=== PATIENT | female | born 1965 | race Caucasian/White ===

== ENCOUNTER 2021-05-09 18:57 | Inpatient (IN) ==
[2021-05-09] MEDS ORDERED: ONDANSETRON INJ 2 MG/ML 2 ML VIAL IV STA ×2 (19:46→20:31)
[2021-05-09] MEDS ORDERED: KETOROLAC TROMETHAMINE 15 MG/ML VIAL IV STA (19:46)
[2021-05-09] MEDS ORDERED: SODIUM CHLORIDE 0.9% 1000ML 1,000 ML IV ONE (19:46)
[2021-05-09 20:12] LABS: Basophils # (auto) 0.05 K/uL (0-0.2); Basophils % (auto) 0.4 %; Eosinophils # (auto) 0.57 K/uL (0-0.5); Eosinophils % (auto) 4.8 %; Hematocrit (blood only) 42.4 % (37-47); Hemoglobin 14.5 g/dL (12.0-16.0); Immature Granulocytes # (auto) 0.03 K/uL (0.00-0.02); Immature Granulocytes % (auto) 0.3 %; Lymphocytes # (auto) 3.07 K/uL (1.2-3.4); Lymphocytes % (auto) 25.8 %; Mean Corpuscular Hemoglobin 32.7 pg (25-34); Mean Corpuscular Hgb Conc 34.2 g/dL (32-36); Mean Corpuscular Volume 95.7 fL (80-100); Mean Platelet Volume 10.6 fL (7.4-10.4); Monocytes # (auto) 1.02 K/uL (0.11-0.59); Monocytes % (auto) 8.6 %; Neutrophils # (auto) 7.14 K/uL (1.4-6.5); Neutrophils % (auto) 60.1 %; Platelet Count 264 K/uL (130-400); RDW Coefficient of Variation 13.3 % (11.5-14.5); RDW Standard Deviation 46.2 fL (36.4-46.3); Red Blood Count 4.43 M/uL (4.2-5.4); White Blood Count 11.88 K/uL (4.8-10.8)
[2021-05-09 20:15] LABS: Appearance Urine Clear (Clear); Bacteria Urine Automated Negative (Negative); Bilirubin Urine Negative (Negative); Blood Urine Negative (Negative); Color Urine Yellow; Epithelial Cell Urine Auto 20-30 /lpf (0-5); Glucose Urine UA Negative (Negative); Ketones Urine Negative (Negative); Leukocyte Esterase Urine 2+ (Negative); Nitrite Urine Negative (Negative); Protein Urine Negative (Negative); RBC Urine Automated 0-4 /hpf (0-4); Specific Gravity Urine 1.012 (1.000-1.030); Urobilinogen Urine Negative (Negative); pH Urine 6.5 (4.5-7.5)
[2021-05-09] MEDS ORDERED: MoRPHine SULFATE 4 MG/ML 1 ML CARP\\VIAL IV STA (20:27)
[2021-05-09 20:29] LABS: Alanine Aminotransferase 25 U/L (12-78); Albumin Level 4.2 gm/dl (3.4-5.0); Aspartate Aminotransferase 24 U/L (15-37); BUN Creatinine Ratio 9.8 (10-20); Bilirubin Direct < 0.1 mg/dl (0-0.2); Blood Urea Nitrogen 10 mg/dl (7-18); Calcium 9.8 mg/dl (8.5-10.1); Carbon Dioxide 31 mmol/L (21-32); Chloride 105 mmol/L (98-107); Creatinine Clr Calc Pharmacy 50.6 ml/min; Est GFR (African American) 77.3 ml/min; Est GFR (Non-African American) 66.7 ml/min; Glucose 89 mg/dl (70-99); Lipase 174 U/L (73-393); Sodium 139 mmol/L (136-145)
[2021-05-09 20:32] LABS: Alkaline Phosphatase 98 U/L (45-117); Bilirubin,Total 0.5 mg/dl (0.2-1); Total Protein 7.7 gm/dl (6.4-8.2)
--- NOTE | 2021-05-09 21:13 | Emergency Department Note ---
History of Present Illness General Chief Complaint: Abdominal Pain Stated Complaint: SEVERE STOMACH PAIN Time Seen by Provider: 05/09/21 19:43 History of Present Illness Provider Complaint: abdominal pain Onset (ago): minute(s) (90) Pain Consistency: constant Location: epigastric Radiation: RUQ and back Migration to: no migration Severity: severe Maximum Pain Intensity: 10 Current Pain Intensity: 9 Quality: + stabbing and + sharp Relieved By: + eating Exacerbated By: + nothing Context: + possible food poisoning (Occurred while eating kielbasa); no foreign travel, no sick contacts, no recent antibiotic use, no recent surgery/procedure or no recent injury Associated Symptoms: + nausea and + vomiting (1 episode.); no diarrhea, no fever, no chills, no constipation, no dysuria, no hematemesis, no hematochezia, no melena, no hematuria, no anorexia, no syncope, no headache, no neck pain, no chest pain, no weakness and no numbness Home Medications Medication Instructions Recorded Confirmed Type escitalopram oxalate 20 mg tablet 20 mg PO QAM 05/09/21 05/09/21 History ([employer] Allergies Allergy/AdvReac Type Severity Reaction Status Date / Time No Known Allergies Allergy Mild Unverified 05/09/21 21:00 Past Med/Surg History Medical History (Updated 05/09/21 @ 23:56 by Vaibhav García) Depressive disorder Kidney stone No pertinent family history Surgical History (Updated 05/09/21 @ 21:11 by Vaibhav García) History of ureter stent No pertinent past surgical history Social History Smoking Status: Current every day smoker Tobacco Type: Cigarettes Preferred Language: Thai Feels Safe at Home: Yes Review of Systems A total of 10 systems reviewed and were otherwise negative Physical Exam Vital Signs: Vital Signs - 24 hr 05/09/21 19:20 05/09/21 20:07 05/09/21 21:19 Temperature 36.4 C L Temperature Source Oral Pulse Rate 76 Pulse Rate [Right] 86 Pulse Rhythm Regular Pulse Rhythm [Righ t] Regular Pulse Strength Normal Pulse Strength [Ri ght] Normal Respiratory Rate 20 20 Respiratory Effort / Characteristics Non-Labored Sponta neous Non-Labored Sponta neous Respiratory Depth Normal Normal Respiratory Patter n Regular Blood Pressure 143/81 H Blood Pressure [Ri ght Arm] 157/76 H Blood Pressure Ariana n 101 Blood Pressure Ariana n [Right Arm] 103 Blood Pressure Pos ition Sitting Blood Pressure Pos ition [Right Arm] Sitting Pulse Oximetry 100 99 99 Oxygen Delivery Me thod Room Air Room Air Room Air Sepsis Recent Feve r Within 48 Hours No Sepsis New/Unexpla ined Change in Men miguelina Status No Sepsis Action Take n by Nursing No Action Required 05/09/21 22:18 05/09/21 23:48 Temperature Temperature Source Pulse Rate Pulse Rate [Right] 70 69 Pulse Rhythm Pulse Rhythm [Righ t] Regular Regular Pulse Strength Pulse Strength [Ri ght] Normal Normal Respiratory Rate 16 16 Respiratory Effort / Characteristics Non-Labored Sponta neous Non-Labored Sponta neous Respiratory Depth Normal Normal Respiratory Patter n Blood Pressure Blood Pressure [Ri ght Arm] 122/69 128/70 Blood Pressure Ariana n Blood Pressure Ariana n [Right Arm] 86 89 Blood Pressure Pos ition Blood Pressure Pos ition [Right Arm] Lying Pulse Oximetry 96 97 Oxygen Delivery Me thod Room Air Room Air Sepsis Recent Feve r Within 48 Hours Sepsis New/Unexpla ined Change in Men miguelina Status Sepsis Action Take n by Nursing Physical Exam: Physical Exam GENERAL: She is oriented to person, place, and time. She appears well-developed and well-nourished. She does not appear distressed. HENT: Exam performed. -Head: Normocephalic and atraumatic. -Right Ear: External ear normal. No mastoid tenderness. -Left Ear: External ear normal. No mastoid tenderness. -Mouth/Throat: The oropharynx is clear and moist. No trismus in the jaw. No dental abscesses or uvula swelling. No oropharyngeal exudate or tonsillar abscesses. EYES: Conjunctivae and EOM are normal. Pupils are equal, round, and reactive to light. Right eye exhibits no discharge. Left eye exhibits no discharge. No scleral icterus. NECK: Normal range of motion. Neck supple. No JVD present. No spinous process tenderness present. No carotid bruit present. No rigidity. No tracheal deviation and normal range of motion present. No Brudzinski's sign and no Kernig's sign noted. CV: Normal rate, regular rhythm, normal heart sounds and intact distal pulses. T here is no peripheral edema. Palpable radial pulses bue. PULM/CHEST: Effort normal and breath sounds normal. No respiratory distress. No stridor. She has no wheezes. She has no rales. -Chest Wall: She exhibits no tenderness. ABD: The abdomen is soft. Bowel sounds are normal. She has no distension. No mass is present. There is tenderness to palpation of the right upper quadrant and epigastric area. There is no rebound, no guarding, no Ware's sign and no tenderness at McBurney's point. Rovsig negative MUSC/SKEL: Normal range of motion. There is no peripheral edema, tenderness or deformity. LYMPH: No cervical adenopathy. NEURO: She is alert and oriented to person, place, and time. She has normal strength. No cranial nerve deficit or sensory deficit. Coordination and gait normal. GCS eye subscore is 4. GCS verbal subscore is 5. GCS motor subscore is 6. Cerebellar tests wnl. SKIN: Skin is warm and dry. She is not diaphoretic. PSYCH: She has a normal mood and affect. Behavior is normal. Judgment and thought content normal. Course Course 194: The patient was evaluated in room C6. A complete history and physical exam was performed Cardiac monitoring: An order was placed for continuous cardiac monitoring. The monitor shows a rate of 80 with sinus rhythm 2200: Vital signs stable. Labs within normal limits. Imaging within normal limits. Patient still reporting a lot of epigastric abdominal pain. She states pain medications not help. Patient will be taken for CT scan of the abdomen. Repeat analgesia ordered for the patient. 2353: Vital signs stable. CT does show dilated fluid-filled small bowel in the lower abdomen pelvis with air-fluid levels which could indicate an early or partial obstruction with possible transition point in the upper pelvis. No hydronephrosis or ureteral calculus. There is also mention of progressing L3-L4 disc base narrowing and irregularity which could represent advanced degenerative changes or discitis/osteomyelitis however the patient has no back pain. [facility] Discussed case with Dr. Juares who agrees to evaluate the patient. Administered Medications Discontinued Medications Al Hydrox/Mg Hydrox/Simethicone (Gi Cocktail Ed Use) 1 dose PO ONE ONE Stop: 05/09/21 21:25 Last Admin: 05/09/21 21:36 Dose: 1 dose Documented by: [id number] Hydromorphone HCl (Hydromorphone Inj 1 Mg/Ml Syringe) 1 mg IV NOW STA Stop: 05/09/21 21:54 Last Admin: 05/09/21 22:17 Dose: 1 mg Documented by: [id number] Sodium Chloride (Nss 1000ml) 1,000 mls @ 999 mls/hr IV .Q1H1M ONE Stop: 05/09/21 20:46 Last Infusion: 05/09/21 21:03 Dose: 0 mls/hr Documented by: [id number] Admin: 05/09/21 19:57 Dose: 999 mls/hr Documented by: [id number] Ioversol (Optiray 320 100ml) 93 ml IV ONCE ONE Stop: 05/09/21 22:31 Last Admin: 05/09/21 22:31 Dose: 93 ml Documented by: [id number] Ketorolac Tromethamine (Ketorolac Tromethamine 15 Mg/Ml Vial) 15 mg IV NOW STA Stop: 05/09/21 19:47 Last Admin: 05/09/21 19:57 Dose: 15 mg Documented by: [id number] Morphine Sulfate (Morphine Sulfate 4 Mg/Ml 1 Ml Carp\Vial) 4 mg IV NOW STA Stop: 05/09/21 20:28 Last Admin: 05/09/21 20:35 Dose: 4 mg Documented by: [id number] Ondansetron HCl (Ondansetron Inj 2 Mg/Ml 2 Ml Vial) 4 mg IV NOW STA Stop: 05/09/21 19:47 Last Admin: 05/09/21 19:57 Dose: 4 mg Documented by: [id number] Ondansetron HCl (Ondansetron Inj 2 Mg/Ml 2 Ml Vial) 4 mg IV NOW STA Stop: 05/09/21 20:32 Last Admin: 05/09/21 20:35 Dose: 4 mg Documented by: [id number] Medical Decision Making Laboratory Data Result diagrams: 05/09/21 20:00 05/09/21 20:00 Lab Results 05/09/21 05/09/21 05/09/21 Range/Units 20:00 20:00 20:00 WBC 11.88 H (4.8-10.8) K/uL RBC 4.43 (4.2-5.4) M/uL Hgb 14.5 (12.0-16.0) g/dL Hct 42.4 (37-47) % MCV 95.7 (80-100) fL MCH 32.7 (25-34) pg MCHC 34.2 (32-36) g/dL RDW Std Deviation 46.2 (36.4-46.3) fL RDW Coeff of Hugo 13.3 (11.5-14.5) % Plt Count 264 (130-400) K/uL MPV 10.6 H (7.4-10.4) fL Immature Gran % (Auto) 0.3 % Neut % (Auto) 60.1 % Lymph % (Auto) 25.8 % [place] % (Auto) 8.6 % Eos % (Auto) 4.8 % Baso % (Auto) 0.4 % Neut # (Auto) 7.14 H (1.4-6.5) K/uL Lymph # (Auto) 3.07 (1.2-3.4) K/uL [place] # (Auto) 1.02 H (0.11-0.59) K/uL Eos # (Auto) 0.57 H (0-0.5) K/uL Baso # (Auto) 0.05 (0-0.2) K/uL Immature Gran # (Auto) 0.03 H (0.00-0.02) K/uL Sodium 139 (136-145) mmol/L Potassium 4.0 (3.5-5.1) mmol/L Chloride 105 (98-107) mmol/L Carbon Dioxide 31 (21-32) mmol/L Anion Gap 4.0 (3-11) BUN 10 (7-18) mg/dl Creatinine 0.97 (0.6-1.2) mg/dl Est Cr Clr Drug Dosing 50.6 ml/min Est GFR ( Amer) 77.3 ml/min Est GFR (Non-Af Amer) 66.7 ml/min BUN/Creatinine Ratio 9.8 L (10-20) Glucose 89 (70-99) mg/dl Calcium 9.8 (8.5-10.1) mg/dl Total Bilirubin 0.5 (0.2-1) mg/dl Direct Bilirubin < 0.1 (0-0.2) mg/dl AST 24 (15-37) U/L ALT 25 (12-78) U/L Alkaline Phosphatase 98 (45-117) U/L Total Protein 7.7 (6.4-8.2) gm/dl Albumin 4.2 (3.4-5.0) gm/dl Lipase 174 (73-393) U/L Urine Color Yellow Urine Appearance Clear (Clear) Urine pH 6.5 (4.5-7.5) Ur Specific [place] 1.012 (1.000-1.030) Urine Protein Negative (Negative) Urine Glucose (UA) Negative (Negative) Urine Ketones Negative (Negative) Urine Blood Negative (Negative) Urine Nitrite Negative (Negative) Urine Bilirubin Negative (Negative) Urine Urobilinogen Negative (Negative) Ur Leukocyte Esterase 2+ H (Negative) Urine WBC (Auto) 10-30 H (0-5) /hpf Urine RBC (Auto) 0-4 (0-4) /hpf U Hyaline Cast (Auto) 1-5 (0-5) /lpf U Epithel Cells (Auto) 20-30 H (0-5) /lpf Urine Bacteria (Auto) Negative (Negative) POC Ur Test (NEG) 05/09/21 Range/Units 20:00 WBC (4.8-10.8) K/uL RBC (4.2-5.4) M/uL Hgb (12.0-16.0) g/dL Hct (37-47) % MCV (80-100) fL MCH (25-34) pg MCHC (32-36) g/dL RDW Std Deviation (36.4-46.3) fL RDW Coeff of Hugo (11.5-14.5) % Plt Count (130-400) K/uL MPV (7.4-10.4) fL Immature Gran % (Auto) % Neut % (Auto) % Lymph % (Auto) % [place] % (Auto) % Eos % (Auto) % Baso % (Auto) % Neut # (Auto) (1.4-6.5) K/uL Lymph # (Auto) (1.2-3.4) K/uL [place] # (Auto) (0.11-0.59) K/uL Eos # (Auto) (0-0.5) K/uL Baso # (Auto) (0-0.2) K/uL Immature Gran # (Auto) (0.00-0.02) K/uL Sodium (136-145) mmol/L Potassium (3.5-5.1) mmol/L Chloride (98-107) mmol/L Carbon Dioxide (21-32) mmol/L Anion Gap (3-11) BUN (7-18) mg/dl Creatinine (0.6-1.2) mg/dl Est Cr Clr Drug Dosing ml/min Est GFR ( Amer) ml/min Est GFR (Non-Af Amer) ml/min BUN/Creatinine Ratio (10-20) Glucose (70-99) mg/dl Calcium (8.5-10.1) mg/dl Total Bilirubin (0.2-1) mg/dl Direct Bilirubin (0-0.2) mg/dl AST (15-37) U/L ALT (12-78) U/L Alkaline Phosphatase (45-117) U/L Total Protein (6.4-8.2) gm/dl Albumin (3.4-5.0) gm/dl Lipase (73-393) U/L Urine Color Urine Appearance (Clear) Urine pH (4.5-7.5) Ur Specific [place] (1.000-1.030) Urine Protein (Negative) Urine Glucose (UA) (Negative) Urine Ketones (Negative) Urine Blood (Negative) Urine Nitrite (Negative) Urine Bilirubin (Negative) Urine Urobilinogen (Negative) Ur Leukocyte Esterase (Negative) Urine WBC (Auto) (0-5) /hpf Urine RBC (Auto) (0-4) /hpf U Hyaline Cast (Auto) (0-5) /lpf U Epithel Cells (Auto) (0-5) /lpf Urine Bacteria (Auto) (Negative) POC Ur Test NEG (NEG) Imaging Data My Impression: Chest x-ray negative. Airway clear. No pneumothorax. No consolidation. No cardiomegaly or cephalization.. No free air under the diaphragm. No fractures of the skeletal structures. No air-fluid levels. Nonspecific bowel gas pattern Radiologist's Impression: PreliminaryFindingsOnly See Final Report For Complete Findings US GALLBLADDER: The gallbladder maybe mildlycontracted with gallbladder wall measuring up to 3 mmthickness. No gallstones or biliarysludge. No sonographic Ware's sign elicited. No biliarydilatation. The common bile duct measures 4 mmin diameter. Unremarkable liver and pancreas. Several nonobstructing inferior right renal calculi measuring 2 mm. Right renal cyst. No hydronephrosis. Radiologist: Jesus Manuel Matthieu, M.D. Study ready at 21:14 and initial results transmitted at 21:18 PreliminaryFindingsOnly See Final Report For Complete Findings CT ABDOMEN & PELVIS With Contrast: Comparison 11/16/2015. Moderate chronic left hydronephrosiswithout associated hydroureter, as before. Presumablychronic UPJ obstruction. Multiple bilateral renal cysts. Several bilateral nonobstructing renal calculi measuring 1-2 mm. No ureteral calculus. No right hydronephrosis. Solid organs otherwise unremarkable. No calcified gallstones. No biliarydilatation. Dilated, fluid-filled small bowel in the lower abdomen and pelviswith air-fluid levelswhich could indicate earlyor partial obstruction with possible transition point in the upper pelvis. Correlate clinically. No evidence for acute appendicitis. Unremarkable uterus. Small amount of free fluid in the pelvis. No abscess or free air. Numerous pelvic phleboliths, as before. Progressing L3-4 disc space narrowing, endplate irregularityand endplate s clerosiswhich maybe advanced degenerative changes though underlying discitis/osteomyelitis cannot be completely excluded in the appropriate clinical setting. Radiologist: Jesus Manuel Sommers M.D. Study ready at 22:41 and initial results transmitted at 23:42 ECG Data Indication: abdominal pain Rate (beats per minute): 62 Rhythm: normal sinus Findings: no ST depression, no ST elevation or no prolonged QT MDM Narrative 1943: The patient was evaluated in room C6. A complete history and physical exam was performed Cardiac monitoring: An order was placed for continuous cardiac monitoring. The monitor shows a rate of 80 with sinus rhythm 2200: Vital signs stable. Labs within normal limits. Imaging within normal limits. Patient still reporting a lot of epigastric abdominal pain. She states pain medications not help. Patient will be taken for CT scan of the abdomen. Repeat analgesia ordered for the patient. 2353: Vital signs stable. CT does show dilated fluid-filled small bowel in the lower abdomen pelvis with air-fluid levels which could indicate an early or partial obstruction with possible transition point in the upper pelvis. No hydronephrosis or ureteral calculus. There is also mention of progressing L3-L4 disc base narrowing and irregularity which could represent advanced degenerative changes or discitis/osteomyelitis however the patient has no back pain. [facility]. Discussed case with Dr. Juares who agrees to evaluate the patient. Impression & Plan Small bowel obstruction Discharge Plan Visit Data Chief Complaint: Abdominal Pain Stated Complaint: SEVERE STOMACH PAIN ED Provider: Vaibhav García Discharge Problem: Small bowel obstruction Patient Disposition: Admitted As Inpatient Forms Stand [facility] Prescriptions Prescriptions: No Action escitalopram oxalate [Lexapro] 20 mg tablet 20 mg PO QAM RF: 0 Referrals Referrals: Scott Rothman MD [Primary Care Provider] -
[2021-05-09] MEDS ORDERED: GI COCKTAIL ED USE PO ONE (21:24)
[2021-05-09] MEDS ORDERED: HYDROmorphone INJ 1 MG/ML SYRINGE IV STA (21:53)
[2021-05-09] MEDS ORDERED: OPTIRAY 320 100ml IV ONE (22:30)
[2021-05-09] MEDS ORDERED: diphenhydrAMINE 50 MG/ML VIAL IV STA (23:53)
[2021-05-09] MEDS ORDERED: HYDROmorphone INJ 0.5 MG/0.5 ML SYR IV STA (23:53)
[2021-05-09] MEDS ORDERED: METOCLOPRAMIDE HCL INJ 5 MG/ML 2 ML VIAL IV ONE (23:53)
[2021-05-10] MEDS ORDERED: HYDROmorphone INJ 0.5 MG/0.5 ML SYR IV PRN (03:23)
--- NOTE | 2021-05-10 04:25 | History and Physical Report ---
DATE OF ADMISSION: 05/10/2021. CHIEF COMPLAINT: Abdominal pain. HISTORY OF PRESENT ILLNESS: This is a 55-year-old female with past medical history significant for GERD, history of nephrolithiasis and hydronephrosis, history of tobacco use disorder, history of depression, history of controlled substance agreement signed, presents with abdominal pain. The patient states the pain started after eating her dinner, severe in nature, all over the belly, going to the back, and had nausea and vomited a few times, that has prompted her to come to the ER. She had normal bowel movement in the morning yesterday. Denies any cough, no fever, no chills, no chest pain, no shortness of breath, no headache, no blurred visions, no earache, no runny nose, no sore throat, no difficulty swallowing. No swelling in the legs, no rash. Currently resting comfortably and hemodynamically stable. ALLERGIES: No known drug allergies. PAST MEDICAL HISTORY: As mentioned above. PAST SURGICAL HISTORY: Left breast lesion excision, colonoscopy, fragment of kidney stone by shockwave. MEDICATIONS: The patient is on Lexapro 20 mg p.o. daily. FAMILY HISTORY: Significant for mother has Alzheimer disease, breast cancer; father has hypertension, triple bypass, diabetes; maternal aunt has breast cancer. SOCIAL HISTORY: . Smokes 1-2 packs a day for 40 years. Alcohol, 1 beer per day. No drug use. REVIEW OF SYSTEMS: As per HPI. Rest of the review of systems is negative. PHYSICAL EXAMINATION: GENERAL: The patient is of moderate build, not in acute distress. VITAL SIGNS: Temperature 36.4, pulse 69, respiratory rate 16, blood pressure 128/70, oxygen 97% on room air. HEENT: Pupils equal, round and reactive to light. Oral mucosa moist. NECK: No JVD, no neck masses. CARDIOVASCULAR: S1 and S2 heard. Regular rate and rhythm. No murmur, no gallop. RESPIRATORY SYSTEM: Normal AP diameter. No accessory muscle use. No wheezing, no crackles. ABDOMEN: Soft. Bowel sounds sluggish. No distention, no guarding, no rigidity. Mild discomfort. CENTRAL NERVOUS SYSTEM: Cranial nerves II-XII grossly intact, nonfocal. EXTREMITIES: No edema, no erythema. LABORATORY DATA: WBC 11.8, hemoglobin 14.5, hematocrit 42.4, platelets 264. Sodium 139, potassium 4, chloride 105, bicarbonate 31, BUN 10, creatinine 0.9, serum glucose 89, calcium 9.8, total bilirubin 0.5, direct bilirubin less than 0.1, AST 24, ALT 25, alkaline phosphatase 98, lipase 174. Urinalysis, +2 leukocyte esterase, negative for bacteria, negative for test. SARS-CoV-2 PCR pending. IMAGING DATA: Preliminary report on CT of abdomen and pelvis, partial small bowel obstruction, . Moderate chronic left hydronephrosis with associated hydroureter, chronic UPJ obstruction, multiple bilateral renal cysts. Gallbladder ultrasound, preliminary report unremarkable. Chest x-ray, preliminary report unremarkable. EKG: Normal sinus rhythm at rate of 62, no acute ST changes seen. ASSESSMENT AND PLAN: This is a 55-year-old female who presents with abdominal pain. 1. Abdominal pain: Partial small bowel obstruction on the preliminary report on CAT scan. The patient denies any abdominal surgeries. We will keep her n.p.o., IV fluids, D5 normal saline at 125 mL per hour, IV Dilaudid 0.5 mg q. 3 hours p.r.n. IV antiemetics, and consult surgery for further recommendations. 2. Possible urinary tract infection: Rocephin. Follow the cultures. 3. Left hydroureter: Seems to be chronic, but does not follow with urology. Will consult urology for further recommendations. 4. Depression: Continue Lexapro. 5. Deep venous thrombosis prophylaxis: Lovenox. DISPOSITION: Closely monitor in the medical floor. PT/OT prior to discharge. Social service to help with discharge planning. Job ID: [id number] [facility]
--- NOTE | 2021-05-10 04:27 | Surgery Consultation ---
Date of Consultation May 10, 2021 Assessment & Plan (1) Small bowel obstruction: Patient has been admitted to the hospital service and we recommend proceeding as follows: Provide analgesics Provide antiemetics Provide IV fluid for hydration Continue bowel rest with n.p.o. status. As patient's abdomen is benign at the time of my exam and she has not had any nausea vomiting for several hours I feel we can hold on NG tube placement at this time. I have explained to the patient that if she has return of her nausea vomiting an NG tube placement for gastric decompression may be required Cause of patient's partial small bowel obstruction is unclear. It is unlikely that she has had adhesions that she has not had any abdominal surgeries. There is potential that maybe patient had a nonspecific enteritis causing this problem that has resolved. I explained to the patient that once she begins passing flatus or having bowel movements we will begin advancing her diet starting with clear liquids providing she does not have any further nausea or vomiting. We will continue following while patient is hospitalized Remainder of plan as directed by the hospital service as above. feeling better. no pain or nausea currently. no surgical indications. suspect gastroenteritis. will start clears. can slowly advance diet as tolerated. History of Present Illness Reason for Consultation: Partial small bowel obstruction Attending Physician: Maximino Guevara MD History of Present Illness This is a 54-year-old female who presented to [facility] emergency department last evening secondary abdominal pain. Patient notes over the past several weeks she has been in her usual state of health feeling well. She notes that she leads a very active lifestyle and does not get any chest pain or shortness of breath with her activities of daily living. She notes that her bowels have been moving normally over the past several weeks. Last evening shortly after eating her evening meal she developed sudden onset of severe abdominal pain that was greatest in the epigastric area. She noted that the pain did not radiate anywhere and she denied any palliative or provocative factors. She denied any fevers, shakes, chills. She did have associated nausea vomiting so she presented to the emergency department. Patient says she has never had this before and she also notes that she has never had any abdominal surgeries in the past. She does note that she has had for vaginal deliveries in the past. Since arrival to the hospital she has not had any bowel movements or passed any flatus. Since admission to the hospital on arrival to the emergency department the patient has had labs and imaging which independently reviewed. Labs including CBC were white blood cell count was elevated at 11.8. Her hemoglobin, hematocrit, and platelet count are all within no normal range. Chemistry profi le showed her sodium, potassium, BUN, and creatinine were within normal range. There were no elevation of her LFTs or lipase. A Covid test was performed and was noted to be negative. A urine test was noted to be negative. Analysis did show 2+ leukocyte Estrace and 10-30 white blood cells per high- power field. A gallbladder ultrasound was performed that showed a contracted gallbladder wall with no gallstones or biliary sludge. There is no biliary ductal dilatation. In addition the patient had a CT scan of the abdomen and pelvis. This study showed some dilated fluid-filled small bowel in the lower abdomen and pelvis with air-fluid levels representing a potential partial small bowel obstruction. There is no free air noted. There is no evidence of appendicitis on the study. At the time of my interview the patient notes that her abdominal pain had resolved and she had not had any nausea vomiting for several hours. She was in no distress at the time of my interview. Allergies Allergy/AdvReac Type Severity Reaction Status Date / Time No Known Allergies Allergy Mild Unverified 05/09/21 21:00 Home Medications Medication Instructions Recorded Confirmed Type escitalopram oxalate 20 mg tablet 20 mg PO QAM 05/09/21 05/09/21 History (Lexapro) Patient History Medical History Depressive disorder Kidney stone No pertinent family history Surgical History History of ureter stent No pertinent past surgical history Family History (Updated 05/10/21 @ 04:52 by Elda Laura RN) Other No known health problems Social History Smoking Status: Current every day smoker Tobacco Type: Cigarettes Second Hand Exposure: Yes; Do You Dip or Chew Tobacco: No; Tobacco Cessation Education Requested by Patient: No Hx Alcohol Use: Yes Alcohol type: beer Hx Substance Use: No Preferred Language: Estonian Communication Ability: Effective Aircraft Cabin [employer] Required: No Beliefs That Will Affect Care: None Current Living Situation: Spouse Other Information That Helps Us Care for You: No Feels Safe at Home: Yes Safety Concerns: Feels Safe At This Time Assistive Devices: Glasses Review of Systems Constitutional: no fever and no chills Eyes: no diplopia Ear, Nose, Mouth, Throat: no ear pain Respiratory: no cough and no dyspnea Cardiovascular: no chest pain Gastrointestinal: + abdominal pain, + nausea and + vomiting Genitourinary: no dysuria Musculoskeletal: no back pain Integumentary: no rash Neurologic: no localized weakness Physical Exam Constitutional: well developed and well nourished; no acute distress Eyes: no conjunctival abnormality ENMT: Ears: no hearing impairment Neck: trachea midline Respiratory: normal respiratory effort; no respiratory distress and no labored breathing Cardiovascular: Rate/Rhythm: regular rate and regular rhythm Gastrointestinal (Abdomen): Abdomen is soft nontender and nondistended at the time my interview with no rebound tenderness or guarding. I do not appreciate any hernias on exam. Bowel sounds are present. Musculoskeletal: No calf tenderness Skin: no rashes Neurologic: moves all extremities Psychiatric: A+Ox3, euthymic affect Results & Data ([facility]) Vital Signs (Past 12 Hours) Vital Signs Temp Pulse Pulse Resp BP BP Pulse Ox 05/10/21 02:28 71 16 120/74 96 05/10/21 01:45 74 16 122/74 98 05/09/21 23:48 69 16 128/70 97 05/09/21 22:18 70 16 122/69 96 05/09/21 21:19 86 20 157/76 H 99 05/09/21 20:07 99 05/09/21 19:20 36.4 C L 76 20 143/81 H 100 PG Care Time/CCT Total # of Minutes Spent Total Time Spent with Patient: Total time spent is greater than 50% in coordination of care (as documented) at patient's floor/unit and/or counseling patient: Coding Level of Care Code 33932 Inpt Consult Level 4 Diagnoses Small bowel obstruction K56.609
--- NOTE | 2021-05-10 04:46 | Urology Consultation ---
Date of Consultation May 10, 2021 Assessment & Plan (1) Hydronephrosis: Patient has been admitted to the hospital and the hospitalist service: Patient is currently being treated for a partial small bowel obstruction with conservative management consisting of bowel rest and intravenous fluids. As her abdomen is not distended and she has not had any nausea vomiting in several hours NG tube is not required at this time Concerning her hydronephrosis this does appear to be chronic particular when compared to old CAT scan and the patient is asymptomatic in this regard. At the present time no urgent urologic intervention is required in this condition can likely be followed up as an outpatient once patient's other issues have resolved. Patient did have an abnormal urinalysis and is receiving Rocephin for antibiotics. Urine culture has been sent and antibiotics can be tailored based on the results of this. History of Present Illness Reason for Consultation: Hydronephrosis Attending Physician: Maximino Guevara MD History of Present Illness This 54-year-old female who presented to [facility] emergency department secondary to abdominal pain. Patient says that she was in her usual state of health leading a very active lifestyle when she developed sudden onset of abdominal pain after eating her evening meal. She had associated nausea vomiting but did not have any fever shakes or chills. She denies any previous abdominal surgeries. He notes pain was primarily in the epigastric region without any modifying factors or radiation. Since arrival to hospital she has not had any bowel movements or passed any flatus and notes that she has not had any further nausea vomiting in several hours. Patient did have a CT scan of the abdomen and pelvis which was compared to a CAT scan from November 2015. On the study the patient was noted to have left hydronephrosis without associated hydroureter. This was felt to be chronic in nature when compared to the old CAT scan and felt to be related to a potential chronic ureteropelvic junction obstruction. Patient was noted to have multiple bilateral renal cysts and several bilateral nonobstructing renal calculi measuring at a maximal dimension of 2 mm. No right hydronephrosis was noted. Labs consisted of a CBC were white blood cell count was 11.8. Hemoglobin, hematocrit, and platelet count are all within normal range. Chemistry profile shows sodium, potassium, BUN, and creatinine were within normal range. Patient did have a urinalysis that showed 2+ leukocyte Estrace and 10-30 white blood cells per high-power field with negative bacteria. Covid test was noted to be negative. Due to the patient's hydronephrosis I did her ask her about urinary symptoms and she denies any dysuria, hematuria, or urinary hesitancy. She does note on occasion some urinary urgency but does not have any urinary incontinence. She denies any back or flank pain. At the time of my interview the patient was resting comfortably in bed in no distress. Her presenting symptoms had for the most part resolved. Allergies Allergy/AdvReac Type Severity Reaction Status Date / Time No Known Allergies Allergy Mild Unverified 05/09/21 21:00 Home Medications Medication Instructions Recorded Confirmed Type escitalopram oxalate 20 mg tablet 20 mg PO QAM 05/09/21 05/09/21 History (Lexapro) Patient History Medical History Depressive disorder Kidney stone No pertinent family history Surgical History History of ureter stent No pertinent past surgical history Social History Smoking Status: Current every day smoker Tobacco Type: Cigarettes Preferred Language: Serbian Feels Safe at Home: Yes Review of Systems Constitutional: no fever and no chills Eyes: no diplopia Ear, Nose, Mouth, Throat: no ear pain Respiratory: no cough and no dyspnea Cardiovascular: no chest pain Gastrointestinal: + abdominal pain, + nausea and + vomiting Genitourinary: + urinary urgency; no dysuria, no urinary hesitancy and no flank pain Musculoskeletal: no back pain Integumentary: no rash Neurologic: no localized weakness Physical Exam Constitutional: well developed and well nourished; no acute distress Eyes: no conjunctival abnormality ENMT: Ears: no hearing impairment and no external ear abnormality Neck: trachea midline Respiratory: normal respiratory effort; no respiratory distress and no labored breathing Cardiovascular: Rate/Rhythm: regular rate and regular rhythm Gastrointestinal (Abdomen): Abdomen is soft nontender nondistended. Palpation did not cause pain Musculoskeletal: No calf tenderness Skin: no rashes Neurologic: moves all extremities Psychiatric: A+Ox3, euthymic affect Genitourinary: no CVA tenderness Results & Data ([facility]) Vital Signs (Past 12 Hours) Vital Signs Temp Pulse Pulse Resp BP BP Pulse Ox 05/10/21 02:28 71 16 120/74 96 05/10/21 01:45 74 16 122/74 98 05/09/21 23:48 69 16 128/70 97 05/09/21 22:18 70 16 122/69 96 05/09/21 21:19 86 20 157/76 H 99 05/09/21 20:07 99 05/09/21 19:20 36.4 C L 76 20 143/81 H 100 PG Care Time/CCT Total # of Minutes Spent Total Time Spent with Patient: Total time spent is greater than 50% in coordination of care (as documented) at patient's floor/unit and/or counseling patient: Coding Level of Care Code 86693 Inpt Consult Level 5 Diagnoses Hydronephrosis N13.30
[2021-05-10] MEDS: D5W AND NSS 1,000 ML IV SCH ×3 (05:10→21:07)
[2021-05-10] MEDS: FAMOTIDINE 20 MG in SYRINGE 3 ML IV SCH ×3 (05:10→21:27)
[2021-05-10] MEDS: cefTRIAXone SODIUM 1,000 MG in DEXTROSE 5% 50 ML IV SCH (05:11)
[2021-05-10 07:38] LABS: Basophils # (auto) 0.02 K/uL (0-0.2); Basophils % (auto) 0.2 %; Eosinophils # (auto) 0.24 K/uL (0-0.5); Eosinophils % (auto) 2.6 %; Hematocrit (blood only) 35.9 % (37-47); Hemoglobin 12.1 g/dL (12.0-16.0); Immature Granulocytes # (auto) 0.02 K/uL (0.00-0.02); Immature Granulocytes % (auto) 0.2 %; Lymphocytes # (auto) 2.86 K/uL (1.2-3.4); Mean Corpuscular Hemoglobin 32.6 pg (25-34); Mean Corpuscular Hgb Conc 33.7 g/dL (32-36); Mean Corpuscular Volume 96.8 fL (80-100); Mean Platelet Volume 10.5 fL (7.4-10.4); Monocytes # (auto) 0.84 K/uL (0.11-0.59); Monocytes % (auto) 9.1 %; Neutrophils # (auto) 5.24 K/uL (1.4-6.5); Neutrophils % (auto) 56.9 %; Platelet Count 220 K/uL (130-400); RDW Coefficient of Variation 13.4 % (11.5-14.5); RDW Standard Deviation 47.4 fL (36.4-46.3); Red Blood Count 3.71 M/uL (4.2-5.4); White Blood Count 9.22 K/uL (4.8-10.8)
[2021-05-10] MEDS ORDERED: ONDANSETRON INJ 2 MG/ML 2 ML VIAL IV PRN (08:02)
[2021-05-10 08:11] LABS: Calcium 8.4 mg/dl (8.5-10.1); Creatinine Clr Calc Pharmacy 55.8 ml/min; Est GFR (African American) 86.9 ml/min; Magnesium 2.4 mg/dl (1.8-2.4); Potassium 4.1 mmol/L (3.5-5.1)
[2021-05-10] MEDS: ENOXAPARIN INJ 40 MG/0.4 ML SYR SQ SCH (08:52)
[2021-05-10] MEDS: ESCITALOPRAM OXALATE 20 MG TAB PO SCH (08:53)
--- NOTE | 2021-05-10 09:03 | Electrocardiogram Report ---
Test Reason : Blood Pressure : / mmHG Vent. Rate : 062 BPM Atrial Rate : 062 BPM P-R Int : 152 ms QRS Dur : 108 ms QT Int : 448 ms P-R-T Axes : 070 092 046 degrees QTc Int : 454 ms Poor data quality, interpretation may be adversely affected Normal sinus rhythm Rightward axis Cannot rule out Old Anterolateral infarct Abnormal ECG No previous ECGs available Confirmed by Mike Strauss ([id number]) on 05/10/2021 9:02:51 AM Referred By: REFERRED SELF Confirmed By:Mike Strauss
--- NOTE | 2021-05-10 09:04 | Ultrasound Report ---
US gallbladder HISTORY: 55 years-old Female ro cholecystitis acute right upper quadrant abdominal pain COMPARISON: CT abdomen and pelvis of same day TECHNIQUE: Multiple real-time sonographic images of the abdominal right upper quadrant were obtained assessing grayscale appearance and color flow FINDINGS: The visualized pancreas is unremarkable. The liver is within normal limits. Unremarkable gallbladder without shadowing cholelithiasis, wall thickening or pericholecystic fluid. Negative sonographic Murp hy's sign. Normal common bile duct, 4 mm. 7 mm cyst of the inferior pole right kidney. No hydronephrosis. There are a few nonobstructing calcul i of the right kidney measuring 2-3 mm. IMPRESSION: 1. No cholelithiasis or sonographic evidence of acute cholecystitis. 2. No biliary ductal dilation. 3. Nonobstructing right nephrolithiasis. ACT 112: Negative or not required by law. The above report was generated using voice recognition software. It may contain grammatical, syntax o r spelling errors. Electronically signed by: Anderson Molina M.D. 05/10/2021 9:03 AM
--- NOTE | 2021-05-10 09:08 | XRay Report ---
XR abdomen 2V w PA chest HISTORY: 55 years-old Female epigastric pain acute right upper quadrant and epigastric abdominal chan n COMPARISON: CT abdomen and pelvis of same day TECHNIQUE: PA view the chest with erect and supine views of the abdomen FINDINGS: Cardiomediastinal and hilar silhouettes are within normal limits. No pneumothorax, pleural effusion, airspace consolidation or overt pulmonary edema. The bones of the chest appear grossly intact. No pneumatosis or pneumoperitoneum. No urolith identified. Small bowel air-fluid levels are noted wit hin the abdominal right lower quadrant. Pelvic basin calcifications are redemonstrated suggestive of probable phleboliths. No acute fracture. Degenerative changes of the spine. IMPRESSION: 1. No acute processes of the chest. 2. Small bowel air-fluid levels of the abdominal right lower quadrant may reflect ileus versus low-gr cale partial small bowel obstruction. Correlate with the CT study of same day. 3. No pneumoperitoneum. ACT 112: Negative or not required by law. The above report was generated using voice recognition software. It may contain grammatical, syntax o r spelling errors. Electronically signed by: Anderson Molina M.D. 05/10/2021 9:07 AM
--- NOTE | 2021-05-10 10:12 | CT Scan Report ---
ABDOMEN AND PELVIS CT WITH IV CONTRAST CT DOSE: 240.07 mGy.cm HISTORY: Acute epigastric abdominal pain epigastric pain TECHNIQUE: Multiaxial CT images of the abdomen and pelvis were performed following the IV administrat ion of 93 cc of Optiray, A dose lowering technique was utilized adhering to the principles of ALARA. COMPARISON STUDY: CT abdomen pelvis 11/16/2015 FINDINGS: Imaged inferior cardiac chambers are unremarkable. Clear lung bases. No pneumatosis or pneumoperitone um. The spleen, pancreas, adrenal glands, gallbladder, and liver appear unremarkable. Patency of the hepatic and portal veins. There are several nonobstructing bilateral renal calculi measuring up to 3 mm. Cyst of the bilateral kidneys measure up to 1.9 cm on the left and 8 mm on the right. Moderate le ft-sided hydroureteronephrosis with normal caliber of the left ureter redemonstrated suggestive of UP J obstruction, stable from 2016. Unremarkable urinary bladder and uterus. Numerous pelvic basin phleb oliths are redemonstrated. Aorta and IVC are unremarkable. Retroaortic left renal vein. No adenopathy . Tiny hiatal hernia suggested. Mild wall thickening of the mid to distal stomach. No bowel obstruction . Trace free pelvic fluid. Mild wall thickening of the ascending colon with partial distention. Meka l appendix. Mild wall thickening involves a few loops of small bowel within the lower abdomen and pel vis. The distal ileum is decompressed. Air-fluid levels are noted within prominent loops of small bow el within the lower abdomen and pelvis measuring up to 2.47 m transversely. No discrete transition po int identified. No acute fracture. There is severe intervertebral disc space narrowing with endplate irregularity/erosions at L3-L4. Mild associated paravertebral edema. The findings are new from 2016. Transitional lumbosacral anatomy. Lumbar levoscoliosis. IMPRESSION: 1. Mild wall thickening of the mid to distal stomach with mild wall thickening involving a few loops of small bowel within the lower abdomen and pelvis. Scattered small bowel air-fluid levels are also n oted. Finding are suggestive of a nonspecific gastroenteritis. A low-grade small bowel obstruction is considered less likely. Follow-up recommended. 2. Trace free pelvic fluid. 3. Moderate left-sided hydronephrosis with UPJ obstruction is unchanged. 4. Severe intervertebral disc space narrowing with endplate irregularity/erosions at L3-L4 with mild paravertebral edema is new from 11/16/2015. Findings may be secondary to discogenic degeneration, howev er correlation should be made to exclude discitis/osteoarthritis. 5. Nonobstructing bilateral nephrolithiasis. 6. Additional findings as above. ACT 112: Negative or not required by law. The above report was generated using voice recognition software. It may contain grammatical, syntax o r spelling errors. Electronically signed by: Anderson Molina M.D. 05/10/2021 10:11 AM
--- NOTE | 2021-05-10 11:32 | XRay Report ---
KUB HISTORY: Acute generalized abdominal pain abd pain COMPARISON: CT abdomen and pelvis 05/09/2021 FINDINGS: Moderate left-sided hydroureteronephrosis redemonstrated. Contrast-filled the urinary bladd er. The bowel gas pattern appears to be nonobstructive. No pneumatosis or pneumoperitoneum. Small fox al calculi are better evaluated on the CT study from 05/09/2021. Degenerative changes of the spine wit h mild levoscoliosis. L3-L4 intervertebral disc space narrowing. No acute fracture. IMPRESSION: 1. The bowel gas pattern appears nonobstructive. 2. Moderate left hydroureteronephrosis redemonstrated. ACT 112: Negative or not required by law. The above report was generated using voice recognition software. It may contain grammatical, syntax o r spelling errors. Electronically signed by: Anderson Molina M.D. 05/10/2021 11:31 AM
[2021-05-11] MEDS: cefTRIAXone SODIUM 1,000 MG in DEXTROSE 5% 50 ML IV SCH (04:26)
[2021-05-11] MEDS: D5W AND NSS 1,000 ML IV SCH ×2 (05:26→13:36)
[2021-05-11] MEDS: FAMOTIDINE 20 MG in SYRINGE 3 ML IV SCH (08:20)
[2021-05-11] MEDS: ENOXAPARIN INJ 40 MG/0.4 ML SYR SQ SCH (08:20)
[2021-05-11] MEDS: ESCITALOPRAM OXALATE 20 MG TAB PO SCH (08:20)
--- NOTE | 2021-05-11 10:12 | Surgery Progress Note ---
Date of Service May 11, 2021 Assessment & Plan (1) Small bowel obstruction: Plan: Patient feeling well this AM Denies abdominal complaints. Had + BM. Tolerating clears Will advance diet to regular for lunch, if tolerates pt would be okay for discharge to home from our standpoint Suspect patient likely had a gastroenteritis Pt seen/examined with Dr. Edwards as above. feeling well. exam benign. will advance diet. will sign off/call if needed. Admission and Anticipated Discharge Date Admission Date: May 10, 2021 Subjective Patient says she feels well this AM. Has been tolerating a liquid diet. Denies nausea/vomiting/abdominal pain. Reports + BM. Physical Exam Physical Exam: awake/alert Gastrointestinal (Abdomen): Percussion/Palpation: + abdomen tender (mild discomfort in the upper abd) and abdomen soft Results & Data ([facility]) Vital Signs (Past 12 Hours) Vital Signs Temp Pulse Resp BP Pulse Ox 05/11/21 07:48 36.7 C 48 L 16 138/81 95 05/10/21 22:49 37.0 C 49 L 14 116/69 96 PG Care Time/CCT Total # of Minutes Spent Total Time Spent with Patient: Total time spent is greater than 50% in coordination of care (as documented) at patient's floor/unit and/or counseling patient: Coding Level of Care Code 11841 Subseq Hosp Care Lvl 2 Diagnoses Small bowel obstruction K56.609
--- NOTE | 2021-05-11 14:15 | Discharge Summary ---
Date of Service May 11, 2021 Admission HPI Per Admitting Provider This is a 55-year-old female with past medical history significant for GERD, history of nephrolithiasis and hydronephrosis, history of tobacco use disorder, history of depression, history of controlled substance agreement signed, presents with abdominal pain. The patient states the pain started after eating her dinner, severe in nature, all over the belly, going to the back, and had nausea and vomited a few times, that has prompted her to come to the ER. She had normal bowel movement in the morning yesterday. Denies any cough, no fever, no chills, no chest pain, no shortness of breath, no headache, no blurred visions, no earache, no runny nose, no sore throat, no difficulty swallowing. No swelling in the legs, no rash. Currently resting comfortably and hemodynamically stable. Admission Exam Per Admitting Provider GENERAL: The patient is of moderate build, not in acute distress. VITAL SIGNS: Temperature 36.4, pulse 69, respiratory rate 16, blood pressure 128/70, oxygen 97% on room air. HEENT: Pupils equal, round and reactive to light. Oral mucosa moist. NECK: No JVD, no neck masses. CARDIOVASCULAR: S1 and S2 heard. Regular rate and rhythm. No murmur, no gallop. RESPIRATORY SYSTEM: Normal AP diameter. No accessory muscle use. No wheezing, no crackles. ABDOMEN: Soft. Bowel sounds sluggish. No distention, no guarding, no rigidity. Mild discomfort. CENTRAL NERVOUS SYSTEM: Cranial nerves II-XII grossly intact, nonfocal. EXTREMITIES: No edema, no erythema. Principal Diagnosis Small bowel obstruction Discharge Exam General: A&Ox3. HENT: NCAT, MMM, EOMI Eyes: PERRLA Neck: Supple, normal range of motion CVS: normal rate and rhythm Resp: b/l good breath sounds Abdomen: Soft, minimal tenderness Extremities: No c/c/e Neuro: face symmetric, strength grossly equal, no focal deficit Skin: warm and dry, no rashes/lesions/errythema MSK: normal ROM, no joint swelling/erythema Discharge Data Allergies Allergy/AdvReac Type Severity Reaction Status Date / Time No Known Allergies Allergy Mild Unverified 05/09/21 21:00 Consultations 05/09/21 23:47 ED Decision to Admit Stat 05/10/21 08:00 Consult General Surgery Routine Consult Urology Routine Ordered Studies 05/09/21 20:25 US gallbladder Urgent 05/09/21 21:53 CT abd pelvis IV con only Urgent Hospital Course (1) Small bowel obstruction: Patient was evaluated by surgery. She was managed conservatively. She was made n.p.o. on admission was given fluids. Abdominal obstruction resolved. Patient tolerated the diet. Patient was discharged in stable condition. (2) Hydronephrosis: CTAP noted moderate left hydro with UPJ obstruction which is unchanged compared to prior CT imaging from 2016. No acute intervention warranted at this time. Patient will need to follow-up with urology as an outpatient. Total Time Total Time Spent Total Time Spent (In Minutes): 25 Discharge Plan Discharge Items Patient Disposition: Home - Self-Care Reason For Visit: abdominal pain Discharge Diagnosis: SBO Activity: Resume your previous activity Non-emergency contact: Primary Care Provider Call non-emergency contact if: your symptoms worsen Follow-up/Referrals: Scott Rothman MD [Primary Care Provider] - Diet: Regular Addtl Attending Provider Instructions: Follow-up with your primary care physician within 1 week. An appointment has been requested. Pending Studies at Discharge: No Stand-Alone Forms: [id number], Smoking Cessation Medications and DC Order Prescriptions: Continued escitalopram oxalate [Lexapro] 20 mg tablet 20 mg PO QAM RF: 0 Discharge Orders: Discharge Order (Routine); Ordered 05/11/21 Ordered By: Maximino Guevara Admission Data Admit Date/Time: 05/10/21 00:47 Attending Provider: Maximino Guevara Admit Provider: Loco Juares Primary Care Provider: Scott Rothman Other Providers: Loco Juares ; Turner Mendez ; Scott Can ; Ary Pierre ; Diana Alaniz ; Miguel Angel Darling ; Huan Leonard ; Victoria Dean ; Carolyn Mera ; Wil Durbin Jr ; Miguel Azevedo ; Bharat Arnett ; Wendy Boyer ; Stephane Gilliam ; Dre Jon ; Otto Quinones ; Sapphire Edwards ; Turner Benz ; Randa Motta ; Amanda Flores ; Kassie Frederick ; Valentín Link ; Juliano Baum ; Vi Peralta ; Ammy Frederick
--- NOTE | 2021-05-21 12:05 | Coding Query ---
CODING QUERY To promote full compliance with coding requirements relating to patient care, provider participation is requested in all cases of motor coach supervisor uncertainty. Please assist us with the question(s) below: Coding Question(s): There is documentation of Small Bowel Obstruction throughout the record and on the Discharge Summary. The Surgical Consultation documents, "Cause of patient's partial small bowel obstruction is unclear. It is unlikely that she has had adhesions that she has not had any abdominal surgeries. There is potential that maybe patient had a nonspecific enteritis causing this problem that has resolved", and the 05/11 Surgery Progress Note documents under the small bowel obstruction, "Suspect patient likely had a gastroenteritis". Please specify below, in your clinical opinion, regarding the source of the Small Bowel Obstruction. ( ) SBO likely caused by Gastroenteritis ( ) SBO with Unknown likely cause ( ) SBO caused by Other: Please Specify Physician's Response(s): Thank you Deborah Park Principal Diagnosis: "that condition established after study, to be chiefly responsible for occasioning the admission of the patient to the hospital for care." Co-Existing Principal Diagnosis: "when two or more diagnoses equally meet the criteria for principal diagnosis as determined by the circumstances of admission, diagnostic work up, and/or therapy provided, and the Alphabetic Index, Tabular List, or another coding guideline does not provide sequencing direction, any one of the diagnoses may be sequenced first." "When the physician has documented what appears to be a current diagnosis in the body of the record, but has not included the diagnosis in the final diagnostic statement, the physician should be asked whether the diagnosis should be added." (Source Coding [facility] 2 QTR90. p3-4) CHELSEA
== END 2021-05-11 15:49 | disposition home or self-care (01) | DRG 392 ==
LOC: ED 18:57 → 3W 05-10 00:47